=== PATIENT | female | born 1955 | race Caucasian/White ===

== ENCOUNTER 2019-03-01 19:56 | Inpatient (IN) | payer OTHER ==
[~2019-03-01] VITALS: Ht 160 cm; Wt 78.3 kg
[~2019-03-01 19:56] MED LIST: ALPR0.5T6 PO; ASPI-817 PO; DOCU-144 PO; DOXY100T20 PO; HYDR-4011 PO; INSU100I15 SC; LANT3I SC; LEVO75TA5 PO; LISI-313 PO; LOSA25TA12 PO; METF-480 PO; METH500T PO; METO-448 PO; NOVO3I SC; OMEP40CA6 PO; ONDA4TAB13 PO; OXYC-279 PO; PANT40TA4 PO; TRAM50TA2 PO; ZOC10 PO
[2019-03-01] MEDS ORDERED: morphine 4 MG/ML VIAL IV STA (23:04)
[2019-03-01] MEDS ORDERED: SODIUM CHLORIDE 0.9% 1L BAG IV* STA (23:04)
[2019-03-01] MEDS ORDERED: ONDANSETRON 4 MG INJ IV STA (23:04)
[2019-03-01] MEDS ORDERED: CEFTRIAXONE 1 GM/50 ML (PMX) 50 ML IVPB STA (23:04)
--- NOTE | 2019-03-01 23:08 | ERD ---
ER Documentation Chief Complaint Chief Complaint RIGHT SIDED FLANK PAIN WITH N/V X1DAY; HX OF KIDNEY STONES HPI 64-year-old female presenting with right-sided flank pain since yesterday with associated nausea and nonbloody vomiting. She does have a history of kidney stones and surgery for ureteral problems. Denies any associated fever or chills. No constipation or diarrhea. No chest pain or shortness of breath. No significant abdominal pain. Denies dysuria or hematuria. ROS All systems reviewed and are negative except as per history of present illness. Medications Home Meds Active Scripts Methocarbamol* (Robaxin*) 500 Mg Tab, 500 MG PO Q8, #20 TAB Prov:LESLEY HERNANDEZ DO 05/29/16 Oxycodone HCl/Acetaminophen (Percocet 5-325 mg Tablet) 1 Each Tablet, 1 EACH PO Q6, #10 TAB Prov:LESLEY HERNANDEZ DO 05/29/16 Hydrocodone/Acetaminophen (Benton 5-325 Tablet) 1 Each Tablet, 1 EACH PO Q4 PRN for PAIN, #30 TAB Prov:VANI ABEL NP 05/27/16 Doxycycline Hyclate* (Doxycycline Hyclate*) 100 Mg Tablet.dr, 100 MG PO BID for 7 Days, TAB OKAY TO SUBSTITUTE WITH REGULAR DOXYCYCLINE IF NOT COVERED IF DOXYCYCYCLINE NOT COVERED, GIVE CLINDAMYCIN 300 MG PO Q8HX 7DAYS Prov:VANI ABEL NP 05/27/16 Insulin Aspart* (Novolog Insulin Pen*) 100 Unit/Ml Soln, 5 UNIT SC .TID WITH MEALS for 30 Days OKAY TO REPLACE WITH HUMALOG Prov:AVNI ABEL NP 05/27/16 Docusate Sodium* (Colace*) 100 Mg Capsule, 100 MG PO DAILY, #30 CAP Prov:SANDRO MÉNDEZ MD 05/22/16 Ondansetron Hcl* (Zofran*) 4 Mg Tab, 4 MG PO Q4H PRN for NAUSEA AND OR VOMITING, #20 TAB Prov:SANDRO MÉNDEZ MD 05/22/16 Hydrocodone/Acetaminophen (Benton 5-325 Tablet) 1 Each Tablet, 1 TAB PO Q6H PRN for PAIN, #20 TAB Prov:SANDRO MÉNDEZ MD 05/22/16 Tramadol HCl (Tramadol HCl) 50 Mg Tablet, 50 MG PO Q4 PRN for PAIN, #20 TAB Prov:DAPHNE CHANDLER 01/27/16 Reported Medications Omeprazole* (Omeprazole*) 40 Mg Capsule.dr, 40 MG PO DAILY, #30 CAP 01/27/16 Metoprolol Tartrate* (Lopressor*) 25 Mg Tab, 25 MG PO DAILY, #60 TAB 01/27/16 Losartan Potassium* (Losartan Potassium*) 25 Mg Tablet, 25 MG PO DAILY, TAB 01/27/16 Pantoprazole* (Pantoprazole*) 40 Mg Tablet.dr, 40 MG PO DAILY, TAB 01/27/16 Aspirin* (Aspirin* EC) 81 Mg Tablet.dr, 81 MG PO EVERY OTHER DAY, TAB 01/26/16 Lisinopril* (Lisinopril*) 5 Mg Tablet, 5 MG PO DAILY, #30 TAB 01/26/16 Metformin* (Glucophage*) 850 Mg Tablet, 850 MG PO BID, TAB 05/28/15 Insulin Glargine,Hum.rec.anlog (Lantus Solostar) 100 Units/Ml Pen, 30-40 UNIT SC HS 05/28/15 Alprazolam* (Alprazolam*) 0.5 Mg Tablet, 0.5 MG PO DAILY, TAB 05/28/15 Levothyroxine Sodium* (Levothyroxine Sodium*) 75 Mcg Tablet, 75 MCG PO AC BREAKFAST, TAB 05/28/15 Simvastatin (Simvastatin) 10 Mg Tablet, 10 MG PO HS, TAB 05/28/15 Allergies Allergies: Coded Allergies: No Known Allergy (Unverified , 05/22/16) PMhx/Soc History of Surgery: Yes (DM2, HTN, GERD, HERNIA, DLP, BLADDER TUMOR, URETHAL SX.) Anesthesia Reaction: No Hx Neurological Disorder: No Hx Respiratory Disorders: No Hx Cardiac Disorders: No Hx Miscellaneous Medical Probl: Yes (DM2, HTN, GERD, HERNIA, DLP, BLADDER TUMOR, URETHAL SX.) Hx Alcohol Use: No Hx Substance Use: No Hx Tobacco Use: No FmHx Family History: No diabetes Physical Exam Vitals Vital Signs Date Temp Pulse Resp B/P (MAP) Pulse Ox O2 O2 Flow FiO2 Time Delivery Rate 03/01/19 98.3 101 18 146/62 100 Room Air 23:06 (90) 03/01/19 100.9 115 19 152/69 95 19:59 (96) Physical Exam Const: No acute distress, well-appearing, nontoxic Head: Atraumatic Eyes: Normal Conjunctiva ENT: Normal External Ears, Nose and Mouth. Neck: Full range of motion. No meningismus. Resp: Clear to auscultation bilaterally Cardio: Tachycardic with regular rhythm, no murmurs Abd: Soft, non tender, non distended. Normal bowel sounds Skin: No petechiae or rashes Back: Right CVA tenderness present s Ext: No cyanosis, or edema Neur: Awake and alert Psych: Normal Mood and Affect Result Diagram: 03/01/19232803/01/192328 Results 24 hrs Laboratory Tests Test 03/01/19 23:29 03/01/19 23:58 White Blood Count 19.3 10^3/ul Red Blood Count 3.91 10^6/ul Hemoglobin 11.0 g/dl Hematocrit 32.4 % Mean Corpuscular Volume 82.9 fl Mean Corpuscular Hemoglobin 28.1 pg Mean Corpuscular Hemoglobin Concent 34.0 g/dl Red Cell Distribution Width 12.1 % Platelet Count 259 10^3/UL Mean Platelet Volume 10.8 fl Immature Granulocytes % 0.500 % Neutrophils % 81.4 % Lymphocytes % 11.6 % Monocytes % 6.2 % Eosinophils % 0.1 % Basophils % 0.2 % Nucleated Red Blood Cells % 0.0 /100WBC Immature Granulocytes # 0.100 10^3/ul Neutrophils # 15.7 10^3/ul Lymphocytes # 2.2 10^3/ul Monocytes # 1.2 10^3/ul Eosinophils # 0.0 10^3/ul Basophils # 0.0 10^3/ul Nucleated Red Blood Cells # 0.0 10^3/ul Urine Color YELLOW Urine Clarity CLEAR Urine pH 5.0 Urine Specific [place] 1.022 Urine Ketones 1+ mg/dL Urine Nitrite POSITIVE mg/dL Urine Bilirubin NEGATIVE mg/dL Urine Urobilinogen NEGATIVE mg/dL Urine Leukocyte Esterase NEGATIVE Octavio/ul Urine Microscopic RBC 0 /HPF Urine Microscopic WBC 7 /HPF Urine Bacteria FEW /HPF Urine Hemoglobin 1+ mg/dL Urine Glucose 3+ mg/dL Urine Total Protein NEGATIVE mg/dl Sodium Level 135 mmol/L Potassium Level 5.0 mmol/L Chloride Level 97 mmol/L Carbon Dioxide Level 23 mmol/L Anion Gap 15 Blood Urea Nitrogen 17 mg/dl Creatinine 0.88 mg/dl Est Glomerular Filtrat Rate mL/min > 60 mL/min Glucose Level 500 mg/dl Calcium Level 10.3 mg/dl Total Bilirubin 0.9 mg/dl Direct Bilirubin 0.00 mg/dl Indirect Bilirubin 0.9 mg/dl Aspartate Amino Transf (AST/SGOT) 17 IU/L Alanine Aminotransferase (ALT/SGPT) 22 IU/L Alkaline Phosphatase 68 IU/L Total Protein 8.1 g/dl Albumin 4.4 g/dl Globulin 3.70 g/dl Albumin/Globulin Ratio 1.18 POC Venous Lactate 2.2 mmol/L Current Medications Medications Dose Sig/Liya Start Time Status Last (Trade) Ordered Route PRN Stop Time Admin Dose Reason Admin Sodium 2,320 ml BOLUS OVER 2 03/01/19 DC 03/01/19 Chloride HOURS STAT 23:04 23:56 (NS) IV* 03/01/19 23:06 Morphine 4 mg ONCE STAT 03/01/19 DC 03/01/19 Sulfate IV 23:04 23:55 (morphine) 03/01/19 23:06 Ondansetron 4 mg ONCE STAT 03/01/19 DC 03/01/19 HCl (Zofran IV 23:04 23:56 Inj) 03/01/19 23:06 Ceftriaxone 50 ml @ ONCE STAT 03/01/19 DC 03/01/19 Sodium 100 mls/hr IVPB 23:04 23:55 03/01/19 23:33 Insulin 10 unit ONCE ONCE 03/02/19 DC Aspart SC 01:00 (Novolog 03/02/19 01:01 Insulin Pen) Diagnostic 1 ea 2 HRS AFTER 03/02/19 DC Test (Pha) NOVOLOG ONCE 01:00 (Accu-Chek) XX 03/02/19 01:01 Ondansetron 4 mg BRIDGE ORDER 03/02/19 HCl (Zofran PRN IV 01:30 Inj) NAUSEA/VOMITI 03/03/19 01:29 NG 650 mg ER BRIDGE 03/02/19 Acetaminophen PRN PO 01:30 (Tylenol .MILD PAIN 03/03/19 01:29 Tab) 1-3 OR TEMP Procedures/MDM EMERGENT LABS AND DIAGNOSTIC STUDIES: Lab Results above were reviewed and interpreted by me. CBC: Leukocytosis, concerning for infection CMP: Hyperglycemia without evidence of acidosis. No evidence of clinically significant electrolyte abnormality, acidosis, renal failure, liver disease, or biliary obstruction Lactate elevated, consistent with severe sepsis UA: Positive for evidence of infection Radiology Results as interpreted by Radiology below were reviewed by Adán Calzada MD: Chest x-ray shows no acute abnormalities CT abdomen pelvis shows right-sided perinephric stranding Initial Nursing notes reviewed. Previous Medical Records requested via the Electronic Health Record. EMERGENCY DEPARTMENT COURSE / MEDICAL DECISION MAKING: Admit MDM: Patient presents with flank pain and work-up is consistent with pyelonephritis. Sepsis work-up initiated. Evidence of severe sepsis but no septic shock. Broad spectrum antibiotics and fluids were given. Patient's infectious symptoms have not stabilized, and the patient is at risk of rapid decompensation. The patient will be admitted for careful hydration, antibiotic therapy, and infectious source control. Severe Sepsis criteria: Infectious source: Pyelonephritis End organ damage indicated by: Lactate > 2.0 mmol/L Sepsis Management: Time of recognition of severe sepsis: 2230 Within 3 hours of recognition: Blood cultures x 2 before broad-spectrum antibiotics: Yes 30 ml/kg NS bolus Completed Initial lactate 2.2 Repeat lactate pending Septic Shock Assessment: Any lactic acid > 4.0 No Persistent hypotension (SBP < 90 or 40 mmHg drop, MAP < 65) despite 30 mL/kg IV fluid bolus No Accepting Care Team Current data and ongoing care discussed. Time: Admitting Physician: Dr. Caceres Sizing Sponger(s): Outstanding Data: cultures Critical Care Time: 40 minutes Treatments/Evaluations: Close monitoring and treatment of unstable vital signs, cardiorespiratory, and neurologic status, while maintaining tight balance of fluid, respiratory, and cardiac interventions. This includes the administration of emergency fluid management while maintaining close respiratory support as well as the provision of immediate and broad-spectrum antibiotic therapy, while performing a simultaneous assessment for possible sources in order to direct targeted therapy. This time includes discussing the case with the patient and the patients family.This time also includes the consideration for invasive and chemical support to prevent cardiopulmonary collapse. This time does not include all procedures stated elsewhere in this record. This time also includes reviewin g old records, labs and radiological studies. This time includes examining and reexamining the patient. Additionally, this time also includes arranging care with admitting and consulting physicians. DECLAN CALZADA MD Mar 01, 2019 23:08
[2019-03-02] MEDS ORDERED: INSULIN ASPART [NOVOLOG] 3 ML PEN SC ONE (01:00)
[2019-03-02] MEDS ORDERED: ACCU-CHEK XX ONE (01:00)
[2019-03-02] MEDS ORDERED: ACETAMINOPHEN 325 MG TAB PO PRN ×2 (01:30→02:00)
[2019-03-02] MEDS ORDERED: ONDANSETRON 4 MG INJ IV PRN ×2 (01:30→02:00)
[2019-03-02] MEDS ORDERED: INSULIN ASPART [NOVOLOG] 3 ML PEN SC SCH ×3 (02:00→08:00)
[2019-03-02] MEDS ORDERED: INSULIN GLARGINE [LANTus] (100 UNITS/ML) SYG SC ONE (02:00)
[2019-03-02] MEDS ORDERED: morphine 2 MG INJ IV PRN (02:00)
[2019-03-02] MEDS: ACCU-CHEK XX SCH (02:00)
[2019-03-02] MEDS ORDERED: NACL 0.9% 3 ML SYG IV SCH (02:00)
[2019-03-02] MEDS ORDERED: DOCUSATE SODIUM 100 MG CAP PO PRN (02:00)
[2019-03-02] MEDS ORDERED: BISACODYL (EC) 5 MG TAB PO PRN (02:00)
[2019-03-02] MEDS: LEVOFLOXACIN 750MG/D5W (PMX) 150 ML IVPB SCH (02:40)
[2019-03-02] MEDS ORDERED: SOD CHLORIDE 0.9% 500 ML IV ONE (03:30)
[2019-03-02 04:30] VITALS: BP 131/86; PULSE 86; RESP 18
[2019-03-02] MEDS ORDERED: ONDANSETRON 4 MG TAB PO PRN (04:30)
[2019-03-02] MEDS: SOD CHLORIDE 0.9% 1,000 ML IV SCH ×2 (04:59→15:58)
[2019-03-02 05:13] VITALS: Ht 160 cm; Wt 78.3 kg
[2019-03-02] MEDS: LEVOTHYROXINE 75 MCG TAB PO SCH (06:36)
[2019-03-02] MEDS: PANTOPRAZOLE (EC) 40 MG TAB PO SCH (06:36)
--- NOTE | 2019-03-02 07:50 | HP ---
Date/Time of Note Date/Time of Note DATE: 03/02/19 TIME: 04:13 Assessment/Plan VTE Prophylaxis SCD applied (from Nsg): Yes Pharmacological prophylaxis: NA/contraindicated Pharm contraindication: low risk/ambulating Lines/Catheters IV Catheter Type (from Nrsg): Saline Lock Assessment/Plan Hospital Course This is a 64-year female being admitted to the [facility] floor for: #1 1. Severe sepsis: Secondary to underlying pyelonephritis. Patient did receive cephalexin emergently. The current time will provide the patient with Levaquin 750 mg IV. Cultures are pending. Trend lactic acid levels. IV fluid hydration with normal saline. 2 pyelonephritis: IV antibiotics of Levaquin, patient did receive initially ceftriaxone emergency department await culture results. CT of the pelvis: Showi ng evidence of Extensive right perinephric stranding without an identifiable ureteral calculus. 3. Severe hyperglycemia: Patient did present with blood sugars in the 500s. She does not appear to be in DKA. She did not take her home dose of Lantus. She did receive insulin in the emergency department. At the current time we will give decreased dose of Lantus 30 units. Insulin sliding scale. We will resume home insulin dosing as scheduled 4. Diabetes mellitus: We will check hemoglobin A 1C. Will give a dose of Lantus will give a reduced dose of Lantus in the emergency department and she did receive insulin already. We will then resume patient's home insulin regimen. Insulin sliding scale. Diabetic diet. 5. Hypertension: Resume home blood pressure medications 6. Hypothyroidism: We will check TSH, resume home levothyroxine 7. Hyperlipidemia: We will check lipid panel, resume statin 8. History of bladder tumor: Currently not active 9 DVT GI prophylaxis: SCDs, no GI prophylaxis indicated further treatment strategy will be implemented as per Result Diagram: 03/01/19232803/01/192328 Results 24hrs Laboratory Tests Test 03/01/19 23:29 03/01/19 23:58 03/02/19 01:24 03/02/19 01:35 White Blood Count 19.3 #H Red Blood Count 3.91 L Hemoglobin 11.0 L Hematocrit 32.4 L Mean Corpuscular 82.9 Volume Mean Corpuscular 28.1 L Hemoglobin Mean Corpuscular 34.0 Hemoglobin Concent Red Cell 12.1 Distribution Width Platelet Count 259 Mean Platelet Volume 10.8 #H Immature 0.500 H Granulocytes % Neutrophils % 81.4 H Lymphocytes % 11.6 L Monocytes % 6.2 Eosinophils % 0.1 Basophils % 0.2 Nucleated Red Blood 0.0 Cells % Immature 0.100 H Granulocytes # Neutrophils # 15.7 H Lymphocytes # 2.2 Monocytes # 1.2 H Eosinophils # 0.0 Basophils # 0.0 Nucleated Red Blood 0.0 Cells # Urine Color YELLOW Urine Clarity CLEAR Urine pH 5.0 Urine Specific 1.022 [place] Urine Ketones 1+ H Urine Nitrite POSITIVE A Urine Bilirubin NEGATIVE Urine Urobilinogen NEGATIVE Urine Leukocyte NEGATIVE Esterase Urine Microscopic 0 RBC Urine Microscopic 7 H WBC Urine Bacteria FEW A Urine Hemoglobin 1+ H Urine Glucose 3+ H Urine Total Protein NEGATIVE Sodium Level 135 Potassium Level 5.0 Chloride Level 97 Carbon Dioxide Level 23 Anion Gap 15 H Blood Urea Nitrogen 17 Creatinine 0.88 Est Glomerular > 60 Filtrat Rate mL/min Glucose Level 500 *H Calcium Level 10.3 H Total Bilirubin 0.9 Direct Bilirubin 0.00 Indirect Bilirubin 0.9 Aspartate Amino 17 Transf (AST/SGOT) Alanine 22 Aminotransferase (AL T/SGPT) Alkaline Phosphatase 68 Total Protein 8.1 Albumin 4.4 Globulin 3.70 H Albumin/Globulin 1.18 Ratio POC Venous Lactate 2.2 *H Lactic Acid Level 3.1 *H Bedside Glucose 433 *H Test 03/02/19 02:34 03/02/19 02:35 03/02/19 03:34 03/02/19 03:48 Lactic Acid Level 2.3 *H POC Venous Lactate 2.1 *H Bedside Glucose 364 H 364 H HPI/ROS Admit Date/Time Admit Date/Time Hx of Present Illness Chief complaint: Right flank pain, dysuria This is a 64-year-old female presenting with right-sided flank pain since yesterday with associated nausea and nonbloody vomiting. She does have a history of kidney stones and surgery for ureteral problems. Denies any associated fever or chills. No constipation or diarrhea. No chest pain or shortness of breath. No significant abdominal pain. Denies dysuria or hematuria. She does report that she is compliant with her diabetes medications however because she was feeling sick she did not take her nighttime dose of insulin. is her urologist. Allergies: NKDA Medications: See ROXANN ROS Const: As per HPI Eyes : No pain discharge or redness or change in visual acuity ENT: No pain, sore throat, congestion, congestion, dysphagia or discharge Respiratory: No shortness of breath, cough, sputum, wheezing, or pleuritic pain Cardiovascular: No chest pain, palpitation, PND, or edema GI : no change in appetite, abdominal pain, nausea, vomiting, diarrhea, constipation, or change in the color his stool Genitourinary: As per HPI Musculoskeletal: No joint pain, back pain, neck pain, restricted range of motion in neck or joints Skin: No rash, bruising or hives Neuro: No headache, dizziness, syncope, seizure, focal weakness Endocrine: As per HPI Psych: No hallucination, depression, anxiety or suicidal ideation PMH/Family/Social Past Medical History Diabetes mellitus Hypertension Hypothyroidism History of kidney stones Hyperlipidemia history of bladder tumor and status post cystoscopy on 06/02/2015 Medications Current Medications Ondansetron HCl (Zofran Inj) 4 mg BRIDGE ORDER PRN IV NAUSEA/VOMITING; Start 03/02/19 at 01:30; Stop 03/03/19 at 01:29 Acetaminophen (Tylenol Tab) 650 mg ER BRIDGE PRN PO .MILD PAIN 1-3 OR TEMP Last administered on 03/02/19at 03:35; Admin Dose 650 MG; Start 03/02/19 at 01:30; Stop 03/03/19 at 01:29 Sodium Chloride 1,000 ml @ 75 mls/hr [id number] IV ; Start 03/02/19 at 01:41 IV Flush (NS 3 ml) 3 ml PER PROTOCOL IV ; Start 03/02/19 at 02:00 Ondansetron HCl (Zofran Inj) 4 mg Q6H PRN IV NAUSEA/VOMITING; Start 03/02/19 at 02:00 Acetaminophen (Tylenol Tab) 650 mg Q6H PRN PO .PAIN 1-3 OR TEMP; Start 03/02/19 at 02:00 Morphine Sulfate (morphine) 2 mg Q4H PRN IV .SEVERE PAIN 7-10; Start 03/02/19 at 02:00 Docusate Sodium (Colace) 100 mg Q12H PRN PO .CONSTIPATION; Start 03/02/19 at 02:00 Bisacodyl (Dulcolax) 5 mg DAILY PRN PO .CONSTIPATION; Start 03/02/19 at 02:00 Enoxaparin Sodium (Lovenox) 40 mg DAILY SC ; Start 03/02/19 at 09:00 Levofloxacin/ Dextrose 150 ml @ 100 mls/hr Q24H IVPB Last administered on 03/02/19at 02:40; Admin Dose 100 MLS/HR; Start 03/02/19 at 02:00; Stop 03/07/19 at 01:59 Diagnostic Test (Pha) (Accu-Chek) 1 ea 02 XX ; Start 03/02/19 at 02:00 Insulin Aspart (Novolog Insulin Pen) NOVOLOG *MILD* ALGORITHM WITH MEALS BEDTIME SC ; Start 03/02/19 at 08:00 Alprazolam (Xanax) 0.5 mg DAILY PO ; Start 03/02/19 at 09:00 Aspirin (Halfprin) 81 mg DAILY PO ; Start 03/02/19 at 09:00 Insulin Aspart (Novolog Insulin Pen) 5 unit TID WITH MEALS SC ; Start 03/02/19 at 02:00 Levothyroxine Sodium (Synthroid) 75 mcg AC BREAKFAST PO ; Start 03/02/19 at 07:00 Sodium Chloride 500 ml @ 500 mls/hr Q1H ONCE IV ; Start 03/02/19 at 03:30; Stop 03/02/19 at 04:29 Coded Allergies: No Known Allergy (Unverified , 05/22/16) Past Surgical History laparoscopic cholecystectomy Laparoscopic liver wedge resection biopsy history of bladder tumor and status post cystoscopy on 06/02/2015 Family History Significant Family History: no pertinent family hx Social History Smoking Status: Never smoker Exam/Review of Systems Vital Signs Vitals Vital Signs Date Temp Pulse Resp B/P (MAP) Pulse Ox O2 O2 Flow FiO2 Time Delivery Rate 03/02/19 101.9 102 24 154/64 97 Room Air 04:07 (94) Exam Exam General: Patient is a pleasant female currently in bed in no acute distress HEENT: Atraumatic, normocephalic. The pupils are equal, round and reactive. Extraocular motor are intact Neck: Supple with full range of motion. No rigidity or meningismus Chest: Nontender Lungs: Clear to auscultation bilaterally no crackles rales or wheezing Heart: Normal S1-S2, Regular rhythm and rate. No murmur, S3, or S4 Abdomen: Obese, nontender, nondistended , bowel sounds are present. Right CVA tenderness palpation Extremities: Normal to inspection, no edema no cyanosis Neurologic: Normal mental status, speech normal, cranial nerves II through XII are intact, motor and sensory are intact, no focal weakness Additional Comments PROCEDURE: CT Abdomen and Pelvis without contrast. CLINICAL INDICATION: Right flank pain TECHNIQUE: CT scan of the abdomen and pelvis was performed on a multi-detector high-resolution CT scanner. The patient was scanned without contrast administration. Coronal and sagittal reformatted images were obtained from the axial source images. Images were reviewed on a high-resolution PACS workstation. The total exam CTDI equals 13 mGy and the total exam DLP equals 700 mGy-cm. DICOM images are available. 3-D reconstructions were not performed. One or more of the following dose reduction techniques were utilized: 1.) Automated exposure control 2.) Adjustment of the mA +/- kV according to patient's size 3.) Use of iterative reconstruction technique. COMPARISON: 05/29/2016 FINDINGS: CT abdomen: Heart (where visible): Unremarkable. Lung bases: No evidence of pneumonia, mass, pleural effusion. Liver: Normal attenuation. No visible focal mass. Biliary ductal system: No evidence of significant dilatation. Gallbladder: Surgically absent. Pancreas: Unremarkable. Stomach: No identifiable focal mass or gross wall thickening. Spleen: No gross splenomegaly. Abdominal colon: Normal in caliber and course. Abdominal small bowel: Normal in caliber, course, and mucosal pattern. Adrenal glands: No visible masses. Right Kidney: Diffuse perinephric stranding. Slight pelvocaliectasis. No visible calcifications. There is no definitely identifiable ureteral calculus. The ureter does not appear significantly dilated. Left kidney: Normal in size and contour without focal mass or collecting system dilatation. No visible calcifications. Abdominal aorta: Normal caliber. A few scattered wall calcifications. Lymph nodes: No significantly enlarged nodes. CT pelvis: Pelvic colon: Normal in caliber and course. No evidence of inflammatory change. Pelvic small bowel: Normal in caliber and course. Appendix: Identified. No evidence of inflammation. Urinary bladder: Normal in size and contour without visible wall thickening. Reproductive structures: The uterus and adnexa are unremarkable. There is no free fluid in the pelvis. . Bony structures included in the scan: No clinically significant abnormalities. IMPRESSION: 1. Extensive right perinephric stranding without an identifiable ureteral calculus. This appearance is not changed substantially since 2015. This may represent perinephric scarring. Active pyelonephritis or recently passed ureteral calculus cannot be fully excluded based on this examination. Correlation with the patient's symptoms and laboratory data is necessary. 2. Surgical absence of the gallbladder. 3. No evidence of bowel obstruction or bowel perforation. RPTAT:AAJJ Physician Jovanni Date Time Electronically viewed and signed by Lexx Chavez Physician on 03/02/2019 01:12 GW/ CC: DECLAN REID MD [id number] PROCEDURE: XR Chest. CLINICAL INDICATION: Possible sepsis TECHNIQUE: Single frontal view of the chest was obtained COMPARISON: CR CHEST 05/23/2016; CR CHEST 05/22/2016; CR CHEST 06/01/2015 FINDINGS: The heart and mediastinum are within normal limits. The lungs are clear. There is no pleural effusion or pneumothorax. ECG leads project over the chest. The patient is mildly rotated to the right. IMPRESSION: No acute disease. RPTAT: HJES .Dheeraj Gilliland MD, MD Date Time Electronically viewed and signed by .Dheeraj Gilliland MD, MD on 03/02/2019 00:04 .S/ CC: DECLAN REID MD [id number] ARETHA TORREZ Mar 02, 2019 04:25
[2019-03-02] MEDS: METOPROLOL 25 MG TAB PO SCH (08:21)
[2019-03-02] MEDS: DOCUSATE SODIUM 100 MG CAP PO SCH (08:22)
[2019-03-02] MEDS: LOSARTAN 25 MG TAB PO SCH (08:22)
[2019-03-02] MEDS: INSULIN ASPART [NOVOLOG] 3 ML PEN SC SCH ×6 (08:24→20:32)
[2019-03-02 08:25] VITALS: BP 117/56; PULSE 88; RESP 16
[2019-03-02] MEDS: ENOXAPARIN 40 MG/0.4 ML SYG SC SCH (08:30)
[2019-03-02] MEDS ORDERED: GLUCAGON 1 MG INJ IM PRN (08:30)
[2019-03-02] MEDS ORDERED: DEXTROSE 50% 50 ML SYRINGE IV PRN ×2 (08:30)
[2019-03-02] MEDS ORDERED: GLUCOSE GEL 15 GRAM TUBE PO PRN ×2 (08:30)
[2019-03-02] MEDS ORDERED: GLUCOSE GEL 15 GRAM TUBE BUCCAL PRN (08:30)
[2019-03-02] MEDS ORDERED: INSULIN ASPART [NOVOLOG] 3 ML PEN SC STA (08:36)
[2019-03-02] MEDS ORDERED: ASPIRIN (EC) 81 MG TAB PO SCH (09:00)
[2019-03-02] MEDS ORDERED: INSULIN GLARGINE [LANTus] (100 UNITS/ML) SYG SC SCH (09:00)
[2019-03-02] MEDS ORDERED: NON-FORMULARY/PATIENT OWN MED (Omeprazole* 40 MG) PO SCH (09:00)
[2019-03-02] MEDS ORDERED: ALPRAZOLAM 0.25 MG TAB PO SCH (09:00)
[2019-03-02] MEDS ORDERED: ALPRAZOLAM 0.5 MG TAB PO SCH (10:20)
--- NOTE | 2019-03-02 14:28 | PN ---
Date/Time of Note Date/Time of Note DATE: 03/02/19 TIME: 14:18 Assessment/Plan VTE Prophylaxis Risk score (from Nsg)>0 risk: 2 SCD applied (from Nsg): Yes Pharmacological prophylaxis: NA/contraindicated Pharm contraindication: low risk/ambulating Lines/Catheters IV Catheter Type (from Nrsg): Peripheral IV Urinary Cath still in place: No Assessment/Plan Assessment/Plan 64 obese [place] woman with uncontrolled type II diabetes mellitus presents w ith R sided pyelonephritis #Pyelonephritis #Sepsis - Continue levofloxacin 750 IV daily - Blood sugar control - Urine cultures pending. - Pain control #Diabetes mellitus II, insulin dependent. #Hyperglycemia - Continue current home regimen of glarigine 48u qam - I also added mealtime insulin 10u and moderate sliding scale. - Patient apparently is very poorly compliant with insulin and diet at home. # Hypertension: Resume home blood pressure medications # Hypothyroidism: resume home levothyroxine # Hyperlipidemia: resume statin # DVT GI prophylaxis: SCDs, no GI prophylaxis indicated Dispo: Blood sugar control, urine culture results. Result Diagram: 03/02/19 0503 03/02/19 0503 Subjective 24 Hr Interval Summary Free Text/Dictation No acute overnight events. Patient continues to have R flank pain. Also complains of L knee skin numbness. Had long discussion with patient's daughter and son-in-law with whom she lives. Apparently the patient is very noncompliant with insulin at home, and believes it will worsen her back pain. She also has a carb-rich diet. Exam/Review of Systems Exam Vitals Vital Signs Date Temp Pulse Resp B/P (MAP) Pulse Ox O2 O2 Flow FiO2 Time Delivery Rate 03/02/19 97.6 88 16 117/56 96 08:25 (76) 03/02/19 Room Air 04:07 Intake and Output 03/01/19 03/01/19 03/02/19 1515:00 23:00 07:00 IntakeIntake Total 1.25 ml BalanceBalance 1.25 ml Exam General: Patient is an obese woman currently in bed in no acute distress HEENT: Atraumatic, normocephalic. The pupils are equal, round and reactive. Extraocular motor are intact Neck: Supple with full range of motion. No rigidity or meningismus Chest: Nontender Lungs: Clear to auscultation bilaterally no crackles rales or wheezing Heart: Normal S1-S2, Regular rhythm and rate. No murmur, S3, or S4 Abdomen: Obese, nondistended , bowel sounds are present. Right CVA tenderness palpation Extremities: Normal to inspection, no edema no cyanosis Results Results 24hrs Laboratory Tests Test 03/01/19 23:29 03/01/19 23:58 03/02/19 01:24 03/02/19 01:35 White Blood Count 19.3 #H Red Blood Count 3.91 L Hemoglobin 11.0 L Hematocrit 32.4 L Mean Corpuscular 82.9 Volume Mean Corpuscular 28.1 L Hemoglobin Mean Corpuscular 34.0 Hemoglobin Concent Red Cell 12.1 Distribution Width Platelet Count 259 Mean Platelet Volume 10.8 #H Immature 0.500 H Granulocytes % Neutrophils % 81.4 H Lymphocytes % 11.6 L Monocytes % 6.2 Eosinophils % 0.1 Basophils % 0.2 Nucleated Red Blood 0.0 Cells % Immature 0.100 H Granulocytes # Neutrophils # 15.7 H Lymphocytes # 2.2 Monocytes # 1.2 H Eosinophils # 0.0 Basophils # 0.0 Nucleated Red Blood 0.0 Cells # Urine Color YELLOW Urine Clarity CLEAR Urine pH 5.0 Urine Specific 1.022 [place] Urine Ketones 1+ H Urine Nitrite POSITIVE A Urine Bilirubin NEGATIVE Urine Urobilinogen NEGATIVE Urine Leukocyte NEGATIVE Esterase Urine Microscopic 0 RBC Urine Microscopic 7 H WBC Urine Bacteria FEW A Urine Hemoglobin 1+ H Urine Glucose 3+ H Urine Total Protein NEGATIVE Sodium Level 135 Potassium Level 5.0 Chloride Level 97 Carbon Dioxide Level 23 Anion Gap 15 H Blood Urea Nitrogen 17 Creatinine 0.88 Est Glomerular > 60 Filtrat Rate mL/min Glucose Level 500 *H Calcium Level 10.3 H Total Bilirubin 0.9 Direct Bilirubin 0.00 Indirect Bilirubin 0.9 Aspartate Amino 17 Transf (AST/SGOT) Alanine 22 Aminotransferase (AL T/SGPT) Alkaline Phosphatase 68 Total Protein 8.1 Albumin 4.4 Globulin 3.70 H Albumin/Globulin 1.18 Ratio POC Venous Lactate 2.2 *H Lactic Acid Level 3.1 *H Bedside Glucose 433 *H Test 03/02/19 02:34 03/02/19 02:35 03/02/19 03:34 03/02/19 03:48 Lactic Acid Level 2.3 *H POC Venous Lactate 2.1 *H Bedside Glucose 364 H 364 H Test 03/02/19 05:03 03/02/19 07:53 03/02/19 09:20 03/02/19 12:06 White Blood Count 16.1 H Red Blood Count 3.49 L Hemoglobin 9.8 L Hematocrit 28.8 L Mean Corpuscular 82.5 Volume Mean Corpuscular 28.1 L Hemoglobin Mean Corpuscular 34.0 Hemoglobin Concent Red Cell 12.0 Distribution Width Platelet Count 216 Mean Platelet Volume 11.1 H Immature 0.600 H Granulocytes % Neutrophils % 82.0 H Lymphocytes % 9.1 L Monocytes % 7.9 Eosinophils % 0.1 Basophils % 0.3 Nucleated Red Blood 0.0 Cells % Immature 0.090 H Granulocytes # Neutrophils # 13.2 H Lymphocytes # 1.5 Monocytes # 1.3 H Eosinophils # 0.0 Basophils # 0.1 Nucleated Red Blood 0.0 Cells # Sodium Level 134 L Potassium Level 4.0 Chloride Level 99 Carbon Dioxide Level 22 Anion Gap 13 Blood Urea Nitrogen 15 Creatinine 0.90 Est Glomerular > 60 Filtrat Rate mL/min Glucose Level 390 H Hemoglobin A1c 10.0 H Calcium Level 9.4 Magnesium Level 1.3 L Total Bilirubin 0.7 Direct Bilirubin 0.00 Indirect Bilirubin 0.7 Aspartate Amino 14 L Transf (AST/SGOT) Alanine 22 Aminotransferase (AL T/SGPT) Alkaline Phosphatase 63 Total Protein 7.3 Albumin 3.8 Globulin 3.50 H Albumin/Globulin 1.08 Ratio Triglycerides Level 182 H Cholesterol Level 157 LDL Cholesterol, 83 Calculated HDL Cholesterol 38 Cholesterol/HDL 4.1 Ratio Thyroid Stimulating 2.030 Hormone (TSH) Bedside Glucose 422 *H 379 H 276 H Medications Medication Current Medications Sodium Chloride 1,000 ml @ 75 mls/hr [id number] IV Last administered on 03/02/19at 04:59; Admin Dose 75 MLS/HR; Start 03/02/19 at 01:41 IV Flush (NS 3 ml) 3 ml PER PROTOCOL IV ; Start 03/02/19 at 02:00 Ondansetron HCl (Zofran Inj) 4 mg Q6H PRN IV NAUSEA/VOMITING; Start 03/02/19 at 02:00 Acetaminophen (Tylenol Tab) 650 mg Q6H PRN PO .PAIN 1-3 OR TEMP; Start 03/02/19 at 02:00 Morphine Sulfate (morphine) 2 mg Q4H PRN IV .SEVERE PAIN 7-10; Start 03/02/19 at 02:00 Docusate Sodium (Colace) 100 mg Q12H PRN PO .CONSTIPATION; Start 03/02/19 at 02:00 Bisacodyl (Dulcolax) 5 mg DAILY PRN PO .CONSTIPATION; Start 03/02/19 at 02:00 Enoxaparin Sodium (Lovenox) 40 mg DAILY SC Last administered on 03/02/19at 08:30; Admin Dose 40 MG; Start 03/02/19 at 09:00 Levofloxacin/ Dextrose 150 ml @ 100 mls/hr Q24H IVPB Last administered on 03/02/19 02:40; Admin Dose 100 MLS/HR; Start 03/02/19 at 02:00; Stop 03/07/19 at 01:59 Diagnostic Test (Pha) (Accu-Chek) 1 ea 02 XX ; Start 03/02/19 at 02:00 Aspirin (Halfprin) 81 mg DAILY PO Last administered on 03/02/19at 08:22; Admin Dose 81 MG; Start 03/02/19 at 09:00 Levothyroxine Sodium (Synthroid) 75 mcg AC BREAKFAST PO Last administered on 03/02/19 06:36; Admin Dose 75 MCG; Start 03/02/19 at 07:00 Docusate Sodium (Colace) 100 mg DAILY PO Last administered on 03/02/19 08:22; Admin Dose 100 MG; Start 03/02/19 at 09:00 Losartan Potassium (Cozaar) 25 mg DAILY PO Last administered on 03/02/19 08:22; Admin Dose 25 MG; Start 03/02/19 at 09:00 Metoprolol Tartrate (Lopressor) 25 mg DAILY PO Last administered on 03/02/19 08:21; Admin Dose 25 MG; Start 03/02/19 at 09:00 Ondansetron HCl (Zofran Tab) 4 mg Q4H PRN PO NAUSEA AND/OR VOMITING; Start 03/02/19 at 04:30 Pantoprazole (Protonix Tab) 40 mg DAILY@0600 PO Last administered on 03/02/19 06:36; Admin Dose 40 MG; Start 03/02/19 at 06:00 Tramadol HCl (Ultram) 50 mg Q4 PRN PO PAIN; Start 03/02/19 at 04:30 Atorvastatin Calcium (Lipitor) 5 mg DAILY@21 PO ; Start 03/02/19 at 21:00 Miscellaneous Information Patients own medicat... BID@10,16 XX ; Start 03/02/19 at 10:00 Insulin Glargine (Lantus) 48 units DAILY SC ; Start 03/03/19 at 09:00 Insulin Aspart (Novolog Insulin Pen) NOVOLOG *MODERATE* ALGORITHM WITH MEALS BEDTIME SC Last administered on 03/02/19at 12:19; Admin Dose 8 UNIT; Start 03/02/19 at 12:00 Miscellaneous Information 1 ea NOTE XX ; Start 03/02/19 at 08:30 Glucose (Glutose) 15 gm Q15M PRN PO DECREASED GLUCOSE; Start 03/02/19 at 08:30 Glucose (Glutose) 22.5 gm Q15M PRN PO DECREASED GLUCOSE; Start 03/02/19 at 08:30 Dextrose (D50w Syringe) 25 ml Q15M PRN IV DECREASED GLUCOSE; Start 03/02/19 at 08:30 Dextrose (D50w Syringe) 50 ml Q15M PRN IV DECREASED GLUCOSE; Start 03/02/19 at 08:30 Glucagon (Glucagen) 1 mg Q15M PRN IM DECREASED GLUCOSE; Start 03/02/19 at 08:30 Glucose (Glutose) 15 gm Q15M PRN BUCCAL DECREASED GLUCOSE; Start 03/02/19 at 08:30 Insulin Aspart (Novolog Insulin Pen) 10 unit WITH MEALS SC Last administered o n 03/02/19at 12:17; Admin Dose 10 UNIT; Start 03/02/19 at 08:15 Alprazolam (Xanax) 0.5 mg DAILY PO ; Start 03/02/19 at 10:20 ESTEBAN MURRY MD Mar 02, 2019 14:28
[2019-03-02 20:00] VITALS: BP 146/65; PULSE 95; RESP 17
[2019-03-02] MEDS: ATORVASTATIN 10 MG TAB PO SCH (20:31)
[2019-03-02] MEDS ORDERED: NON-FORMULARY/PATIENT OWN MED (Simvastatin 10 MG) PO SCH (21:00)
[2019-03-03 02:00] VITALS: BP 118/58; PULSE 86; RESP 19
[2019-03-03] MEDS: LEVOFLOXACIN 750MG/D5W (PMX) 150 ML IVPB SCH (02:03)
[2019-03-03] MEDS: ACCU-CHEK XX SCH (02:04)
[2019-03-03] MEDS: SOD CHLORIDE 0.9% 1,000 ML IV SCH ×2 (04:21→17:16)
[2019-03-03] MEDS: traMADol 50 MG TAB PO PRN (06:08)
[2019-03-03] MEDS: PANTOPRAZOLE (EC) 40 MG TAB PO SCH (06:08)
[2019-03-03 08:00] VITALS: BP 129/58; PULSE 68; RESP 18
[2019-03-03] MEDS: LEVOTHYROXINE 75 MCG TAB PO SCH (08:05)
[2019-03-03] MEDS: DOCUSATE SODIUM 100 MG CAP PO SCH (08:17)
[2019-03-03] MEDS: METOPROLOL 25 MG TAB PO SCH (08:19)
[2019-03-03] MEDS: LOSARTAN 25 MG TAB PO SCH (08:19)
[2019-03-03] MEDS: ENOXAPARIN 40 MG/0.4 ML SYG SC SCH (08:21)
[2019-03-03] MEDS ORDERED: INSULIN GLARGINE [LANTus] (100 UNITS/ML) SYG SC SCH (09:00)
[2019-03-03] MEDS: INSULIN ASPART [NOVOLOG] 3 ML PEN SC SCH ×7 (09:55→20:47)
[2019-03-03] MEDS ORDERED: INSULIN GLARGINE [LANTus] (100 UNITS/ML) SYG SC ONE (11:30)
--- NOTE | 2019-03-03 12:38 | PN ---
Date/Time of Note Date/Time of Note DATE: 03/03/19 TIME: 12:36 Assessment/Plan VTE Prophylaxis Risk score (from Ns)>0 risk: 5 SCD applied (from Ns): Yes Pharmacological prophylaxis: NA/contraindicated Pharm contraindication: other Lines/Catheters IV Catheter Type (from Nrsg): Peripheral IV Urinary Cath still in place: No Assessment/Plan Hospital Course 64 obese [place]onian woman with uncontrolled type II diabetes mellitus presents with R sided pyelonephritis #Sepsis secondary to pyelonephritis - Continue levofloxacin 750 IV daily - Blood sugar control - Urine cultures pending. - Pain control #Diabetes mellitus II, insulin dependent-sugars currently elevated -Increase Lantus and NovoLog dose -Lantus x1 today -Continue sliding scale - Patient apparently is very poorly compliant with insulin and diet at home. # Hypertension: Resume home blood pressure medications # Hypothyroidism: resume home levothyroxine # Hyperlipidemia: resume statin # DVT GI prophylaxis: SCDs, no GI prophylaxis indicated Dispo: Blood sugar control, urine culture results. Result Diagram: 03/03/1959 03/03/19 0659 Results 24hrs Laboratory Tests Test 03/02/19 16:54 03/02/19 20:29 03/03/19 01:15 03/03/19 06:59 Bedside Glucose 212 235 H 273 H White Blood Count 10.4 # Red Blood Count 3.44 L Hemoglobin 9.6 L Hematocrit 28.7 L Mean Corpuscular 83.4 Volume Mean Corpuscular 27.9 L Hemoglobin Mean Corpuscular 33.4 Hemoglobin Concent Red Cell 11.9 Distribution Width Platelet Count 205 Mean Platelet Volume 11.0 H Immature 0.500 H Granulocytes % Neutrophils % 69.1 Lymphocytes % 21.0 Monocytes % 8.1 Eosinophils % 0.9 Basophils % 0.4 Nucleated Red Blood 0.0 Cells % Immature 0.050 H Granulocytes # Neutrophils # 7.2 Lymphocytes # 2.2 Monocytes # 0.9 Eosinophils # 0.1 Basophils # 0.0 Nucleated Red Blood 0.0 Cells # Sodium Level 134 L Potassium Level 4.7 Chloride Level 102 Carbon Dioxide Level 24 Anion Gap 8 Blood Urea Nitrogen 14 Creatinine 0.90 Est Glomerular > 60 Filtrat Rate mL/min Glucose Level 355 H Calcium Level 9.4 Total Bilirubin 0.6 Direct Bilirubin 0.00 Indirect Bilirubin 0.6 Aspartate Amino 14 L Transf (AST/SGOT) Alanine 22 Aminotransferase (AL T/SGPT) Alkaline Phosphatase 60 Total Protein 6.9 Albumin 3.5 Globulin 3.40 H Albumin/Globulin 1.02 Ratio Test 03/03/19 08:04 03/03/19 09:46 Bedside Glucose 360 H 307 H Subjective 24 Hr Interval Summary Constitutional: no complaints Exam/Review of Systems Exam Vitals Vital Signs Date Temp Pulse Resp B/P (MAP) Pulse Ox O2 O2 Flow FiO2 Time Delivery Rate 03/03/19 98.6 68 18 129/58 100 08:00 (81) 03/02/19 Room Air 04:07 Intake and Output 03/02/19 03/02/19 03/03/19 1515:00 23:00 07:00 IntakeIntake Total 360 ml 120 ml 1450 ml BalanceBalance 360 ml 120 ml 1450 ml Constitutional: alert, oriented Respiratory: clear to auscultation Cardiovascular: regular rate and rhythm Gastrointestinal: soft; No distended Musculoskeletal: nl extremities to inspection Results Results 24hrs Laboratory Tests Test 03/02/19 16:54 03/02/19 20:29 03/03/19 01:15 03/03/19 06:59 Bedside Glucose 212 235 H 273 H White Blood Count 10.4 # Red Blood Count 3.44 L Hemoglobin 9.6 L Hematocrit 28.7 L Mean Corpuscular 83.4 Volume Mean Corpuscular 27.9 L Hemoglobin Mean Corpuscular 33.4 Hemoglobin Concent Red Cell 11.9 Distribution Width Platelet Count 205 Mean Platelet Volume 11.0 H Immature 0.500 H Granulocytes % Neutrophils % 69.1 Lymphocytes % 21.0 Monocytes % 8.1 Eosinophils % 0.9 Basophils % 0.4 Nucleated Red Blood 0.0 Cells % Immature 0.050 H Granulocytes # Neutrophils # 7.2 Lymphocytes # 2.2 Monocytes # 0.9 Eosinophils # 0.1 Basophils # 0.0 Nucleated Red Blood 0.0 Cells # Sodium Level 134 L Potassium Level 4.7 Chloride Level 102 Carbon Dioxide Level 24 Anion Gap 8 Blood Urea Nitrogen 14 Creatinine 0.90 Est Glomerular > 60 Filtrat Rate mL/min Glucose Level 355 H Calcium Level 9.4 Total Bilirubin 0.6 Direct Bilirubin 0.00 Indirect Bilirubin 0.6 Aspartate Amino 14 L Transf (AST/SGOT) Alanine 22 Aminotransferase (AL T/SGPT) Alkaline Phosphatase 60 Total Protein 6.9 Albumin 3.5 Globulin 3.40 H Albumin/Globulin 1.02 Ratio Test 03/03/19 08:04 03/03/19 09:46 Bedside Glucose 360 H 307 H Medications Medication Current Medications Sodium Chloride 1,000 ml @ 75 mls/hr [id number] IV Last administered on 03/02/19at 15:58; Admin Dose 75 MLS/HR; Start 03/02/19 at 01:41 IV Flush (NS 3 ml) 3 ml PER PROTOCOL IV ; Start 03/02/19 at 02:00 Ondansetron HCl (Zofran Inj) 4 mg Q6H PRN IV NAUSEA/VOMITING; Start 03/02/19 at 02:00 Acetaminophen (Tylenol Tab) 650 mg Q6H PRN PO .PAIN 1-3 OR TEMP Last administered on 03/02/19at 14:39; Admin Dose 650 MG; Start 03/02/19 at 02:00 Morphine Sulfate (morphine) 2 mg Q4H PRN IV .SEVERE PAIN 7-10 Last administered on 03/03/19 02:03; Admin Dose 2 MG; Start 03/02/19 at 02:00 Docusate Sodium (Colace) 100 mg Q12H PRN PO .CONSTIPATION; Start 03/02/19 at 02:00 Bisacodyl (Dulcolax) 5 mg DAILY PRN PO .CONSTIPATION; Start 03/02/19 at 02:00 Enoxaparin Sodium (Lovenox) 40 mg DAILY SC Last administered on 03/03/19 08:21; Admin Dose 40 MG; Start 03/02/19 at 09:00 Levofloxacin/ Dextrose 150 ml @ 100 mls/hr Q24H IVPB Last administered on 03/03/19 02:03; Admin Dose 100 MLS/HR; Start 03/02/19 at 02:00; Stop 03/07/19 at 01:59 Diagnostic Test (Pha) (Accu-Chek) 1 ea 02 XX Last administered on 03/03/19at 02:04; Admin Dose 1 EA; Start 03/02/19 at 02:00 Levothyroxine Sodium (Synthroid) 75 mcg AC BREAKFAST PO Last administered on 03/03/19 08:05; Admin Dose 75 MCG; Start 03/02/19 at 07:00 Docusate Sodium (Colace) 100 mg DAILY PO Last administered on 03/03/19 08:17; Admin Dose 100 MG; Start 03/02/19 at 09:00 Losartan Potassium (Cozaar) 25 mg DAILY PO Last administered on 03/03/19 08: 19; Admin Dose 25 MG; Start 03/02/19 at 09:00 Metoprolol Tartrate (Lopressor) 25 mg DAILY PO Last administered on 03/03/19 08:19; Admin Dose 25 MG; Start 03/02/19 at 09:00 Ondansetron HCl (Zofran Tab) 4 mg Q4H PRN PO NAUSEA AND/OR VOMITING; Start 03/02/19 at 04:30 Pantoprazole (Protonix Tab) 40 mg DAILY@0600 PO Last administered on 03/03/19 06:08; Admin Dose 40 MG; Start 03/02/19 at 06:00 Tramadol HCl (Ultram) 50 mg Q4 PRN PO PAIN Last administered on 03/03/19 06:08; Admin Dose 50 MG; Start 03/02/19 at 04:30 Atorvastatin Calcium (Lipitor) 5 mg DAILY@21 PO Last administered on 03/02/19 20:31; Admin Dose 5 MG; Start 03/02/19 at 21:00 Miscellaneous Information Patients own medicat... BID@10,16 XX Last administered on 03/03/19 09:57; Admin Dose 1 EA; Start 03/02/19 at 10:00 Insulin Aspart (Novolog Insulin Pen) NOVOLOG *MODERATE* ALGORITHM WITH MEALS BEDTIME SC Last administered on 03/03/19 09:55; Admin Dose 10 UNIT; Start 03/02/19 at 12:00 Miscellaneous Information 1 ea NOTE XX ; Start 03/02/19 at 08:30 Glucose (Glutose) 15 gm Q15M PRN PO DECREASED GLUCOSE; Start 03/02/19 at 08:30 Glucose (Glutose) 22.5 gm Q15M PRN PO DECREASED GLUCOSE; Start 03/02/19 at 08:30 Dextrose (D50w Syringe) 25 ml Q15M PRN IV DECREASED GLUCOSE; Start 03/02/19 at 08:30 Dextrose (D50w Syringe) 50 ml Q15M PRN IV DECREASED GLUCOSE; Start 03/02/19 at 08:30 Glucagon (Glucagen) 1 mg Q15M PRN IM DECREASED GLUCOSE; Start 03/02/19 at 08:30 Glucose (Glutose) 15 gm Q15M PRN BUCCAL DECREASED GLUCOSE; Start 03/02/19 at 08:30 Insulin Aspart (Novolog Insulin Pen) 14 unit WITH MEALS SC ; Start 03/03/19 at 11:30 Insulin Glargine (Lantus) 54 units DAILY SC ; Start 03/04/19 at 09:00 BENJI CARRION Mar 03, 2019 12:38
[2019-03-03 14:00] VITALS: BP 129/79; PULSE 84; RESP 18
[2019-03-03] MEDS ORDERED: MAGNESIUM SULFATE 2 GM/50 ML 50 ML IVPB ONE (14:00)
[2019-03-03 20:00] VITALS: BP 146/65; PULSE 84; RESP 17
[2019-03-03] MEDS: MAGNESIUM OXIDE 400 MG TAB PO SCH (20:52)
[2019-03-03] MEDS: ATORVASTATIN 10 MG TAB PO SCH (20:52)
[2019-03-04 02:00] VITALS: BP 147/65; PULSE 70; RESP 18
[2019-03-04] MEDS: ACCU-CHEK XX SCH (02:00)
[2019-03-04] MEDS: LEVOFLOXACIN 750MG/D5W (PMX) 150 ML IVPB SCH (02:47)
[2019-03-04] MEDS: LEVOTHYROXINE 75 MCG TAB PO SCH (06:37)
[2019-03-04] MEDS: PANTOPRAZOLE (EC) 40 MG TAB PO SCH (06:38)
[2019-03-04] MEDS: SOD CHLORIDE 0.9% 1,000 ML IV SCH (06:39)
[2019-03-04 08:04] VITALS: BP 160/70; PULSE 71; RESP 16
[2019-03-04] MEDS: INSULIN ASPART [NOVOLOG] 3 ML PEN SC SCH ×4 (08:17→12:13)
[2019-03-04] MEDS: MAGNESIUM OXIDE 400 MG TAB PO SCH (08:19)
[2019-03-04] MEDS: DOCUSATE SODIUM 100 MG CAP PO SCH (08:19)
[2019-03-04] MEDS: ENOXAPARIN 40 MG/0.4 ML SYG SC SCH (08:19)
[2019-03-04] MEDS: LOSARTAN 25 MG TAB PO SCH (08:20)
[2019-03-04] MEDS: METOPROLOL 25 MG TAB PO SCH (08:20)
[2019-03-04] MEDS ORDERED: INSULIN GLARGINE [LANTus] (100 UNITS/ML) SYG SC SCH (09:00)
[2019-03-04 12:00] VITALS: BP 145/65
--- NOTE | 2019-03-04 13:01 | PDOCDIS ---
Discharge Instructions CONDITION [id number] Patient Condition: Chazi2t Good HOME CARE INSTRUCTIONS: [id number] Special Diet: [id number] DIABETIC ACTIVITY: [id number] Activity Restrictions: [id number] No Restrictions FOLLOW UP/APPOINTMENTS Follow-up Plan FOLLOW UP WITH YOUR PCP IN 1-2 WEEKS BENJI CARRION Mar 04, 2019 13:01
[2019-03-04] MEDS: traMADol 50 MG TAB PO PRN (13:30)
--- NOTE | 2019-03-05 16:34 | DS ---
Date/Time of Note Date/Time of Note DATE: 03/05/19 TIME: 16:31 Discharge Summary Admission/Discharge Info Admit Date/Time Mar 02, 2019 at 01:13 Discharge Date/Time Mar 04, 2019 at 14:40 Discharge Diagnosis 64 obese Portuguese woman with uncontrolled type II diabetes mellitus presents with R sided pyelonephritis #Sepsis secondary to UTI -Resolved with antibiotics -Status post Levaquin - Blood sugar control - Urine cultures shows E. coli #Diabetes mellitus II, insulin dependent-sugars currently elevated -Patient noncompliant, compliance strongly urged # Hypertension: Resume home blood pressure medications # Hypothyroidism: resume home levothyroxine # Hyperlipidemia: resume statin #Morbid obesity -Lifestyle changes Patient Condition: Good Hospital Course Patient is a 64 obese Portuguese woman with uncontrolled type II diabetes mellitus and noncompliance with insulin, hypertension who presents with sepsis secondary to UTI, urine culture showed E. coli and sepsis did resolve with IV antibiotics. Patient's sugars were elevated and controlled with insulin in house, compliance with home insulin strongly advised lifestyle changes recommended for weight loss. Patient stable for DC, the day of discharge patient's vitals, labs and physical exam are stable. Home Meds Active Scripts Methocarbamol* (Robaxin*) 500 Mg Tab, 500 MG PO Q8, #20 TAB Prov:LESLEY HERNANDEZ DO 05/29/16 Insulin Aspart* (Novolog Insulin Pen*) 100 Unit/Ml Soln, 5 UNIT SC .TID WITH MEALS for 30 Days OKAY TO REPLACE WITH HUMALOG Prov:VANI ABEL NP 05/27/16 Docusate Sodium* (Colace*) 100 Mg Capsule, 100 MG PO DAILY, #30 CAP Prov:SANDRO MÉNDEZ MD 05/22/16 Ondansetron Hcl* (Zofran*) 4 Mg Tab, 4 MG PO Q4H PRN for NAUSEA AND OR VOMITING, #20 TAB Prov:SANDRO MÉNDEZ MD 05/22/16 Tramadol HCl (Tramadol HCl) 50 Mg Tablet, 50 MG PO Q4 PRN for PAIN, #20 TAB Prov:DAPHNE CHANDLER 01/27/16 Reported Medications Insulin Glargine* (Lantus*) 100 Unit/Ml Soln, 48 UNIT SC DAILY, #1 VIAL 7/26/19 Omeprazole* (Omeprazole*) 40 Mg Capsule.dr, 40 MG PO DAILY, #30 CAP 01/27/16 Metoprolol Tartrate* (Lopressor*) 25 Mg Tab, 25 MG PO DAILY, #60 TAB 01/27/16 Losartan Potassium* (Losartan Potassium*) 25 Mg Tablet, 25 MG PO DAILY, TAB 01/27/16 Pantoprazole* (Pantoprazole*) 40 Mg Tablet.dr, 40 MG PO DAILY, TAB 01/27/16 Aspirin* (Aspirin* EC) 81 Mg Tablet.dr, 81 MG PO EVERY OTHER DAY, TAB 01/26/16 Metformin* (Glucophage*) 850 Mg Tablet, 850 MG PO BID, TAB 05/28/15 Alprazolam* (Alprazolam*) 0.5 Mg Tablet, 0.5 MG PO DAILY, TAB 05/28/15 Levothyroxine Sodium* (Levothyroxine Sodium*) 75 Mcg Tablet, 75 MCG PO AC BREAKFAST, TAB 05/28/15 Simvastatin (Simvastatin) 10 Mg Tablet, 10 MG PO HS, TAB 05/28/15 Discontinued Reported Medications Lisinopril* (Lisinopril*) 5 Mg Tablet, 5 MG PO DAILY, #30 TAB 01/26/16 Insulin Glargine,Hum.rec.anlog (Lantus Solostar) 100 Units/Ml Pen, 30-40 UNIT SC HS 05/28/15 Discontinued Scripts Oxycodone HCl/Acetaminophen (Percocet 5-325 mg Tablet) 1 Each Tablet, 1 EACH PO Q6, #10 TAB Prov:LESLEY HERNANDEZ DO 05/29/16 Hydrocodone/Acetaminophen ([place] 5-325 Tablet) 1 Each Tablet, 1 EACH PO Q4 PRN f or PAIN, #30 TAB Prov:VANI ABEL V. ROLL BUCKER 05/27/16 Doxycycline Hyclate* (Doxycycline Hyclate*) 100 Mg Tablet.dr, 100 MG PO BID for 7 Days, TAB OKAY TO SUBSTITUTE WITH REGULAR DOXYCYCLINE IF NOT COVERED IF DOXYCYCYCLINE NOT COVERED, GIVE CLINDAMYCIN 300 MG PO Q8HX 7DAYS Prov:VANI ABEL V. ROLL BUCKER 05/27/16 Hydrocodone/Acetaminophen ([place] 5-325 Tablet) 1 Each Tablet, 1 TAB PO Q6H PRN for PAIN, #20 TAB Prov:SANDRO MÉNDEZ MD 05/22/16 Follow-up Plan FOLLOW UP WITH YOUR PCP IN 1-2 WEEKS Primary Care Provider Not On Staff Doctor Time spent on discharge: > 30 minutes BENJI CARRION Mar 05, 2019 16:34
== END 2019-03-04 14:40 | disposition home or self-care (01) | DRG 872 ==
LOC: E/R 19:56 → PP2 03-02 01:13
PROVIDERS: ADMIT Family Medicine; ATTEND Internal Medicine
DX: A41.9 Sepsis, unspecified organism (principal); N12 Tubulo-interstitial nephritis, not specified as acute or chronic; I10 Essential (primary) hypertension; E11.65 Type 2 diabetes mellitus with hyperglycemia; E03.9 Hypothyroidism, unspecified; E78.5 Hyperlipidemia, unspecified; E66.01 Morbid (severe) obesity due to excess calories; Z71.3 Dietary counseling and surveillance; Z79.82 Long term (current) use of aspirin; Z79.4 Long term (current) use of insulin; Z91.14 Patient's other noncompliance with medication regimen
CPT/HCPCS: 36415; 71045; 73562; 74176; 80053; 80061; 81001; 82962; 83036; 83605; 83735; 84443; 85025; 87086; 96374; 96375; J0696; J1650; J1815; J1956; J2270; J2405; J3475; J7030; J7040